=== PATIENT | female | born 1985 | race Hispanic/Latino ===

== ENCOUNTER 2025-03-03 13:03 | Emergency (ER) | payer SELFPAY ==
[~2025-03-03] VITALS: Ht 157.5 cm; Wt 113.4 kg
--- NOTE | 2025-03-03 13:18 | ERN ---
ED Note History of Present Illness Stated Complaint: SOB Chief Complaint: Shortness of Breath Time Seen by MD: 13:04 Dictation: PATIENT IS A 40-YEAR-OLD FEMALE HERE WITH FLU-LIKE SYMPTOMS TO INCLUDE BODY ACHES/SHORTNESS A BREATH, SORE THROAT WITH PAINFUL SWALLOWING FOR 2-3 DAYS. SHE STATES SHE HAS BEEN SICK SINCE WEDNESDAY AFTER THEY GOT HOME FROM HER TRIP SAID HER HAS BEEN SICK WITH A COLD LIKE SYMPTOMS HOWEVER HAS NOT SEEN HIS DOCTOR. SHE DENIES NAUSEA VOMITING NO LOSS OF TASTE OR SMELL HER PRIMARY CARE DOCTOR IS DAVID LINDSEY. Allergies: Coded Allergies: Penicillins (Unverified Allergy, Unknown, 03/03/25) Past Medical History History: Not Applicable RN Note Reviewed/Agreed w/PFSH: Yes Review of System Dictation CONSTITUTIONAL: NEGATIVE EXCEPT FOR HPI CHILLS HEAD/FACE: NEGATIVE EXCEPT FOR HPI EENT: NEGATIVE EXCEPT FOR HPI SORE THROAT WITH RESPIRATORY: NEGATIVE EXCEPT FOR HPI PAINFUL SWALLOWING COUGH WITH THE SOB GASTROINTESTINAL/ABDOMINAL: NEGATIVE EXCEPT FOR HPI GENITOURINARY: NEGATIVE EXCEPT FOR HPI MUSCULOSKELETAL: NEGATIVE EXCEPT FOR HPI INTEGUMENTARY: NEGATIVE EXCEPT FOR HPI NEUROLOGICAL/PSYCH: NEGATIVE EXCEPT FOR HPI HEMATOLOGIC/LYMPHATIC: NEGATIVE EXCEPT FOR HPI ALL SYSTEMS NEGATIVE, EXCEPT NOTED ABOVE. 13 POINT REVIEW OF SYSTEMS ASSESSED AND ALL NEGATIVE EXCEPT FOR ABOVE. Initial Vital Sign VS Vital Signs Date Time Temp Pulse Resp B/P (MAP) Pulse Ox O2 Delivery O2 Flow Rate FiO2 03/03/25 13:15 99.5 136 24 170/141 98 0 03/03/25 13:57 Room Air* 21 Physical Exam Dictation VITAL SIGNS REVIEWED GENERAL APPEARANCE: ALERT, ORIENTED X 3, MILD ACUTE DISTRESS, WELL DEVELOPED, NOURISHED. OBESE HEAD AND FACE: NON-TRAUMATIC. EYES: PERRL, PINK CONJUNCTIVAS, EYELID NO TRAUMA, ANTERIOR CHAMBER WITH ARCUS SENILIS. EARS: PINNAS INTACT AND NO SIGNS OF TRAUMA OR ERYTHEMA EAR CANALS CLEAR AND NO DISCHARGE TM NO ERYTHEMA NOSE: NO DISCHARGE, NO BLEEDING. OROPHARYNX: MOUTH NORMAL, TONGUE PINK, PHARYNX CLEAR, MILD PHARYNGEAL ERYTHEMA, TONSILS NO EXUDATES, NO ABSCESSES NOTED, MUCOUS MEMBRANE MOIST NECK: SUPPLE, NON-TENDER, NO THYROMEGALY, NO MASSES, NO JVD, NO BRUITS BREAST:DEFERRED CHEST:NO TENDERNESS, NO CREPITUS, NO PARADOXICAL MOVEMENT, NO RETRACTIONS LUNGS:CLEAR, WELL-VENTILATED, SYMMETRIC, NO RALES, NO WHEEZING, NO RHONCHI, NO STRIDOR, GOOD BREATH SOUNDS BILATERALLY HEART: REGULAR RATE, REGULAR RHYTHM, NO MURMUR, NO GALLOPS VASCULAR: NO PERIPHERAL EDEMA, ABDOMEN: SOFT, POSITIVE BOWEL SOUNDS, NONDISTENDED, NO GUARDING, NONTENDER, NO REBOUND, NO MASSES NO HEPATOMEGALY, NO SPLENOMEGALY, NO CASTRO'S SIGN, NO HERNIAS. RECTAL: DEFERRED GENITAL: DEFERRED NEUROLOGICAL: NORMAL SPEECH, MOTOR FUNCTION INTACT, SENSORY FUNCTION INTACT MUSCULOSKELETAL: NECK NONTENDER, FULL RANGE OF MOTION, BACK NONTENDER, FULL RANGE OF MOTION, EXTREMITIES: NONTENDER, FULL RANGE OF MOTION SKIN: COLOR PINK, DRY, NO TURGOR, NO RASH, NO LACERATIONS, NO ABRASIONS, NO CONTUSIONS. LYMPHATIC: DEFERRED Results (Laboratory/Radiology) Laboratory/Radiology Laboratory Tests Test 03/03/25 13:21 Influenza Type A Antigen Negative For Type A Influenza Type B Antigen Negative For Type B SARS-CoV-2 Antigen (Rapid) PRESUMPTIVE NEGATIVE Group A Streptococcus Rapid negative (NEGATIVE) Labs Reviewed?: Yes ED Course ED Course Orders Procedure Category Date Status Time Rapid (Group A Strep) LAB 03/03/25 Complete 13:16 Covid19 (Sars Antigen LAB 03/03/25 Complete Rapid) 13:16 Influenza Type A & B, LAB 03/03/25 Complete Rapid 13:16 Acetaminophen 500mg PHA 03/03/25 Complete Tab (Tylenol 500mg T 13:30 Dexamethasone 4mg/Ml PHA 03/03/25 Complete 1ml Vial (Dexametha 13:30 Current Medications Medications (Trade) Dose Ordered Sig/Anel Route PRN Reason Start Time Stop Time Status Last Admin Dose Admin Acetaminophen (TYLenol 500MG TAB) 1,000 mg ONCE ONCE PO 03/03/25 13:30 03/03/25 13:31 DC 03/03/25 13:50 Dexamethasone Sodium Phosphate (dexaMETHasone 4MG/ML 1ML VIAL) 8 mg ONCE ONCE IM 03/03/25 13:30 03/03/25 13:31 DC 03/03/25 13:50 Vital Signs Date Time Temp Pulse Resp B/P (MAP) Pulse Ox O2 Delivery O2 Flow Rate FiO2 03/03/25 13:57 99.5 118 18 156/93 99 Room Air* 0 21 03/03/25 13:50 99.5 03/03/25 13:15 99.5 136 24 170/141 98 0 1410/PATIENT STATES SHE FEELS BETTER AFTER TREATMENT. DISCHARGED HOME WITH TREATMENT FOR ACUTE PHARYNGITIS UNSPECIFIED, COUGH AND NAUSEA. Medical Decision Making MDM MEDICAL DISCHARGE MAKING BASED ON SWABS FOR FLU COVID AND STREP. PATIENT GIVEN DECADRON AND ACETAMINOPHEN DISCHARGED HOME WITH THE ANTIBIOTICS FOR ACUTE PHARYNGITIS UNSPECIFIED/COUGH AND VIRAL SYNDROME. DX & DISP Disposition: Discharge Departure Impression: Primary Impression: Viral URI with cough Additional Impressions: Acute pharyngitis, unspecified, Nausea & vomiting, Fever Condition: Stable Scripts Benzonatate (Tessalon Perles) 100 Mg Cap 200 MG PO TID for cough, #60 CAP 0 Refills Prov: SILVANA WEAVER NP 03/03/25 Azithromycin (Zithromax Tri-Nathaniel) 500 Mg Tablet 500 MG PO DAILY for 5 Days, #5 TAB Prov: SILVANA WEVAER NP 03/03/25 Ondansetron (Ondansetron Odt) 4 Mg Tab.rapdis 4 MG PO Q6HPRN PRN for nausea, #16 TAB 0 Refills Prov: SILVANA WEAVER NP 03/03/25 Albuterol Sulfate (Ventolin Hfa/Proventil Hfa/Proair Hfa) 90 Mcg Puff 2 PUFF IH Q4H PRN for SHORTNESS OF BREATH/WHEEZING for 30 Days, #1 INH 0 Refills Prov: SILVANA WEAVER NP 03/03/25 Additional Instructions: Follow-up with primary care provider in 1 to 2 days. Take medications as directed here in the emergency room. Okay to continue home medications unless otherwise discussed during your visit in the emergency room today. Return to your nearest emergency room if symptoms worsen or if there is no improvement. Call 911 if you need immediate assistance. Take Tylenol or Motrin [id number] as needed and if no contraindications are present. Increase oral hydration. A wound culture or urine culture was ordered here in the emergency room department please follow-up with primary care provider and advise them to get repeat ports from our facility. If you had any Flaquito wrap/splints that were applied here, please do not remove them until you see your primary care or specialty. Take antibiotics as directed until gone. Use albuterol inhaler every4 hours while awake for the next two days. Increase your water intake. No work until cleared by your doctor at [facility] on Wednesday. Time of Disposition: 14:11 I have reviewed the case, and I agree with, Diagnosis and Plan SILVANA WEAVER NP Mar 03, 2025 13:18
[2025-03-03 13:40] LABS: RAPID GROUP A STREP negative (NEGATIVE)
[2025-03-03 13:49] LABS: COVID19 (SARS ANTIGEN RAPID) PRESUMPTIVE NEGATIVE (NEGATIVE); INFLUENZA TYPE A Negative For Type A (NEGATIVE); INFLUENZA TYPE B Negative For Type B (NEGATIVE)
[2025-03-03 13:50] VITALS: TEMP 99.5
[2025-03-03] MEDS: acetaMINOPHEN 500 MG TABLET PO ONE (13:50)
[2025-03-03] MEDS: dexaMETHasone SOD PHOSPHATE 4 MG/ML 1ML VIAL IM ONE (13:50)
[2025-03-03 13:57] VITALS: BP 156/93; PULSE 118; RESP 18; TEMP 99.5; O2SAT 99
[2025-03-03] MEDS ORDERED: ALBUHFA IH (14:13)
[2025-03-03] MEDS ORDERED: BENZ-39 PO (14:13)
[2025-03-03] MEDS ORDERED: AZIT500T2 PO (14:13)
[2025-03-03] MEDS ORDERED: ONDA-243 PO (14:13)
== END 2025-03-03 14:22 | disposition home or self-care (01) ==
LOC: EDH 13:03
DX: J02.8 Acute pharyngitis due to other specified organisms (principal); B97.89 Other viral agents as the cause of diseases classified elsewhere; R11.2 Nausea with vomiting, unspecified; Z20.822 Contact with and (suspected) exposure to COVID-19; Z88.0 Allergy status to penicillin
CPT/HCPCS: 99283; 87426; 87880; 87804 ×2; 96372; J1100